=== PATIENT | female | born 1975 | race Caucasian/White ===

== ENCOUNTER → 2020-05-11 12:34 | Outpatient (BNVA) | payer OTHER, SELFPAY | PROVIDERS: Family Provider Family Medicine; Visit Provider Family Medicine | DX: Z11.59 Encounter for screening for other viral diseases (principal) | CPT/HCPCS: 87635 ==

== ENCOUNTER 2020-09-06 19:36 | Emergency (ER) | payer OTHER, SELFPAY ==
[2020-09-06 19:50] VITALS: BP 151/105; PULSE 112; RESP 14; TEMP 36.7; O2SAT 98; BMI 38.0
--- NOTE | 2020-09-06 22:15 | US_ITS ---
WS: [id number] RIGHT UPPER QUADRANT ULTRASOUND HISTORY: RUQ pain COMPARISON: None available. Liver: 14.2 cm in length. Normal size liver. No bile duct dilatation or mass. Gallbladder: Normally distended gallbladder. Stone with shadowing measures 2.1 cm within the gallblad clarisse. No pericholecystic fluid or gallbladder wall thickening. CBD: 0.4 cm Pancreas: Poorly visualized. The body is normal. Head and tail are obscured. Right kidney: 10.1 cm in length. Normal size and echogenicity. No hydronephrosis or mass. Aorta and IVC: Unremarkable abdominal aorta and IVC. No ascites. US/US gall bladder [id number] IMPRESSION: 1. Cholelithiasis without acute cholecystitis. 2. No bile duct dilatation.
--- NOTE | 2020-09-06 22:16 | W.ED.ABDPA2 ---
HPI - Abdominal Pain General: Chief Complaint: Abdominal Pain Stated Complaint: upper abd/back pain Time Seen by Provider: 09/06/20 22:11 History of Present Illness: HPI narrative: Patient is has right upper quadrant pain that radiates into her right shoulder and into her back after eating this is gone for the last 3 days. Does have a history of reflux she said this is deafly not reflux. Patient has felt nauseous has not vomited. Denies any bowel or bladder problems. When she is 5 years ago with her child she had gallbladder problems at that time but has been pretty much symptom-free since then until now. Denies fever chills. MD elicited complaint: abdominal pain Onset (ago): day(s) Pain Consistency: intermittent Location: RUQ Severity: moderate Quality: aching Radiation: back and other (Right shoulder) Exacerbating factors: eating Associated Symptoms: Reports nausea; Denies chills and fever(s) Review of Systems Const: Denies: fever(s), chills or body aches Eyes: Denies: change in vision or blurry vision ENMT: Denies: throat pain or nasal congestion Card: Denies: chest pain or dyspnea on exertion Resp: Denies: dyspnea, productive cough or non-productive cough GI: Reports: abdominal pain and nausea Musc: Denies: extremity pain Skin/Breast: Denies: rash Neuro: Denies: headache(s) Psych: Denies: anxiety or depression Warner/Lymph: Denies: easy bruising Physical Exam Const: COMMON NORMALS: no acute distress, average body habitus and patient oriented x3 HENMT: COMMON NORMALS: normocephalic HEAD & SCALP: normal to inspection and normocephalic FACE & SINUS: normal facial exam Eye: COMMON NORMALS: conjunctivae normal GENERAL EYE: appearance normal, both eyes and all related structures CONJUNCTIVA: Yes conjunctivae normal Neck/C-Spine: COMMON NORMALS: no JVD Chest: COMMONS NORMALS: normal inspection of the chest Resp: COMMON NORMALS: normal respiratory effort and clear to auscultation bilaterally AUSCULTATION: clear to auscultation bilaterally Cardio: COMMON NORMALS: no JVD, regular rate and regular rhythm RATE: regular rate RHYTHM: regular rhythm GI: COMMON NORMALS: Normal to inspection, nondistended, normoactive bowel sounds present PALPATION: Yes Tenderness to palpation present (GI) Details: RUQ Extremity: COMMON NORMALS: normal to inspection and full ROM Neuro: COMMON NORMALS: patient oriented x3 Course Vital Signs: Vital signs: Vital Signs Temperature 98.1 F 09/07/20 00:31 Pulse Rate 78 09/07/20 00:31 Respiratory Rate 17 09/07/20 00:31 Blood Pressure 148/87 09/07/20 00:31 Pulse Oximetry 98 09/07/20 00:31 MDM - Abdominal Pain MDM Narrative: Medical decision making narrative: Per ultrasound patient has a stone stuck up in the neck of her gallbladder. Labs look fine. Patient is going to follow-up with surgeon and see about getting gallbladder removal done. Lab Data: Labs: Lab Results 09/06/20 09/06/20 Range/Units 22:53 22:53 WBC 9.5 (4.0-10.0) 10^3/ uL RBC 4.33 (4.1-5.3) 10^6/u L Hgb 12.4 (11.5-15.3) g/dL Hct 38.5 (37.0-47.0) % MCV 88.9 (81-99) fL MCH 28.6 (28.0-34.0) pg MCHC 32.2 (30.0-36.0) g/dL RDW 13.3 (12.1-15.1) % Plt Count 384 (130-400) 10^3/c mm MPV 9.9 (7.4-10.4) fL Neut % (Auto) 70.6 % Lymph % (Auto) 20.3 % [place] % (Auto) 6.4 % Eos % (Auto) 1.9 % Baso % (Auto) 0.6 % Neut # (Auto) 6.71 (1.8-7.7) 10^3/u L Lymph # (Auto) 1.9 (0.8-4.8) 10^3/u L [place] # (Auto) 0.6 (0.2-0.9) 10^3/u L Eos # (Auto) 0.2 (0.0-0.8) 10^3/u L Baso # (Auto) 0.1 (0.0-0.1) 10^3/u L Nucleated RBC % (a uto) 0 % Nucleated RBCs # 0.0 /100WBC Sodium 137 (136-145) mmol/L Potassium 3.5 (3.5-5.1) mmol/L Chloride 99 (98-107) mmol/L Carbon Dioxide 28 (22-29) mmol/L Anion Gap 13.5 (5-19) BUN 14 (6-20) mg/dL Creatinine 1.1 H (0.5-0.9) mg/dL GFR Calculation 54.2 L (90-130) mL/min Glucose 134 H (65-115) mg/dL Calculated Osmolal ity 286 (285-295) mOsm/k g Calcium 9.3 (8.5-10.5) mg/dL Total Bilirubin 0.2 (0.15-1.2) mg/dL AST 13 (0-32) U/L ALT 13 (0-33) U/L Alkaline Phosphata se 60 (35-105) IU/L Total Protein 7.0 (6.6-8.7) g/dL Albumin 4.0 (3.5-5.2) g/dL Globulin 3.0 (1.3-4.6) g/dL Lipase 20 (13-60) U/L Discharge Plan Discharge Patient Disposition: Home Clinical Impression: Gallstone Qualifiers: Cholecystitis presence: without cholecystitis Biliary obstruction: without biliary obstruction Qualified Code(s): K80.20 - Calculus of gallbladder without cholecystitis without obstruction Condition: Stable Prescriptions: New hydrocodone-acetaminophen 5-325 mg tablet 1 tab PO TID PRN (Reason: pain) Qty: 14 RF: 0 Discharge Orders: Discharge ED (Routine); Ordered 09/07/20 Ordered By: Renaldo Dunne Referrals: Park Lowry DO [Primary Care Provider] - Discharge Diet: As Directed and Low Fat Discharge Activity: Resume usual activity Patient Instructions: Biliary Colic (ED) Activity Restrictions/Additional Instructions: Follow-up with medical provider as directed. Take medications as prescribed. Return to the ER or your medical provider if condition worsens. Please read and understand discharge instructions. If any questions ask please. He will be contacted by the hospital with appointment for general surgeon. Coding Level of Care Code ED Fork Repairer for Chg Fwd Exam Comprehensive
[2020-09-06 22:20] VITALS: BP 155/92; PULSE 87; RESP 17; O2SAT 98
[2020-09-06] MEDS: lidocaine 2% viscous 15 ML, aluminum-mag hydrox-simethicon 30 ML, sucralfate oral liq 1 GM PO (22:56)
[2020-09-06] MEDS: sodium chloride 0.9% 1,000 ML 999 ML IV (22:59)
[2020-09-06 23:33] LABS: Basophils # 0.1 10^3/uL (0.0-0.1); Basophils % 0.6 %; Eosinophils # 0.2 10^3/uL (0.0-0.8); Eosinophils % 1.9 %; Hematocrit 38.5 % (37.0-47.0); Hemoglobin 12.4 g/dL (11.5-15.3); Lymphocytes # 1.9 10^3/uL (0.8-4.8); Lymphocytes % 20.3 %; Mean Corpuscular HGB Conc 32.2 g/dL (30.0-36.0); Mean Corpuscular Hemoglobin 28.6 pg (28.0-34.0); Mean Corpuscular Volume 88.9 fL (81-99); Mean Platelet Volume 9.9 fL (7.4-10.4); Monocytes # 0.6 10^3/uL (0.2-0.9); Monocytes % 6.4 %; Neutrophils # 6.71 10^3/uL (1.8-7.7); Neutrophils % 70.6 %; Nucleated Red Blood Cells % 0 %; Platelet Count 384 10^3/cmm (130-400); Red Blood Count 4.33 10^6/uL (4.1-5.3); Red Cell Distribution Width 13.3 % (12.1-15.1); White Blood Count 9.5 10^3/uL (4.0-10.0)
[2020-09-06 23:40] LABS: Alanine Aminotransferase 13 U/L (0-33); Alkaline Phosphatase 60 IU/L (35-105); Anion Gap 13.5 (5-19); Aspartate Amino Transferase 13 U/L (0-32); Blood Urea Nitrogen 14 mg/dL (6-20); Calcium 9.3 mg/dL (8.5-10.5); Carbon Dioxide 28 mmol/L (22-29); Chloride 99 mmol/L (98-107); Glomerular Filtration Rate 54.2 mL/min (90-130); Glucose 134 mg/dL (65-115); Lipase 20 U/L (13-60); Osmolality Calculated 286 mOsm/kg (285-295); Potassium 3.5 mmol/L (3.5-5.1); Sodium 137 mmol/L (136-145); Total Bilirubin 0.2 mg/dL (0.15-1.2)
[2020-09-06] MEDS: HYDROcodone-acetaminophen 7.5-325 mg Tablet 1 TAB PO (23:45)
[2020-09-07 00:31] VITALS: BP 148/87; PULSE 78; RESP 17; TEMP 36.7; O2SAT 98
--- NOTE | 2020-09-07 09:14 | DCPLANNER ---
manager private had message to schedule a followup appointment for patient with [facility] General Surgery. manager private emailed patients information to both Yuliya and [place] at general surgery. Patients information will be printed and reviewed. Clinic will call patient with appointment information.
--- NOTE | 2020-09-08 11:52 | DCPLANNER ---
Patient has a follow up appointment scheduled for Saturday, September 12, [address] at 2:[address] Chou. Clinic will call patient with appointment information.
--- NOTE | 2020-10-20 14:51 | DCPLANNER ---
Patient had a follow up appointment scheduled for 09.12.[address] Chou at general surgery - appointment was cancelled due to weather.
== END 2020-09-07 00:31 | disposition home or self-care (01) ==
PROVIDERS: Emergency Provider Nurse Practitioner Family; PCP Family Medicine
DX: K80.20 Calculus of gallbladder without cholecystitis without obstruction (principal)
CPT/HCPCS: 12345; 76705; 80053; 83690; 85025; 96360; 99283; J7030

== ENCOUNTER → 2022-03-13 16:28 | Outpatient (BNVA) | payer OTHER, SELFPAY | PROVIDERS: Visit Provider Family Medicine | DX: E66.9 Obesity, unspecified (principal); R73.03 Prediabetes; Z71.3 Dietary counseling and surveillance; Z76.89 Persons encountering health services in other specified circumstances | CPT/HCPCS: 80053; 80061; 83036; 84439; 84443; 85025 ==

== ENCOUNTER 2022-03-18 16:47 | Emergency (ER) | payer OTHER, SELFPAY ==
[2022-03-18 17:13] VITALS: BP 129/79; PULSE 67; RESP 16; TEMP 36.6; O2SAT 99; BMI 36.0
--- NOTE | 2022-03-18 17:28 | XRR_ITS ---
PROCEDURE INFORMATION: Exam: XR Left Hand Exam date and time: 03/18/2022 5:35 PM Age: 47 years old Clinical indication: Injury or trauma; Other: Bite on left hand TECHNIQUE: Imaging protocol: Radiologic exam of the Left hand. Views: 3 or more views. COMPARISON: No relevant prior studies available. FINDINGS: Bones/joints: Normal. Soft tissues: Normal. XR/XR hand LT min 3V* [id number] IMPRESSION: No acute findings.
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
[2022-03-18] MEDS: mupirocin oint 22 gm 1 APPLIC TOPICAL (17:53)
[2022-03-18] MEDS: ciprofloxacin 500 mg Tablet PO (17:53)
[2022-03-18] MEDS: tetanus-dipt-pertussis 0.5 mL SDV IM (17:54)
[2022-03-18 20:47] LABS: HIV 1 & 2 Antibody Non-Reactive (Non-Reactiv); HIV 1 & 2 Antigen Non-Reactive (Non-Reactiv)
[2022-03-18 21:01] LABS: Hepatitis A Antibody IgM Non-Reactive (Nonreactive); Hepatitis B Core IgM Non-Reactive (Nonreactive); Hepatitis B Surface Antigen Non-Reactive (Nonreactive); Hepatitis C Virus Antibody Non-Reactive (Nonreactive)
== END 2022-03-18 19:48 | disposition home or self-care (01) ==
PROVIDERS: Emergency Provider Nurse Practitioner Family
DX: S61.452A Open bite of left hand, initial encounter (principal); Y04.1XXA Assault by human bite, initial encounter; Y92.239 Unspecified place in hospital as the place of occurrence of the external cause; Y99.0 Civilian activity done for income or pay; Z23 Encounter for immunization
CPT/HCPCS: 73130; 80074; 87806; 90471; 90715; 99284

== ENCOUNTER 2024-08-05 19:12 | Emergency (ER) | payer OTHER, SELFPAY ==
[2024-08-05 19:17] VITALS: BP 153/76; PULSE 85; TEMP 36.7; O2SAT 99; BMI 34.7
--- NOTE | 2024-08-05 19:29 | CTR_ITS ---
PROCEDURE INFORMATION: Exam: CT Head Without Contrast Exam date and time: 08/05/2024 7:43 PM Age: 49 years old Clinical indication: Pain; Headache; Additional info: JOYA TECHNIQUE: Imaging protocol: Computed tomography of the head without contrast. Radiation optimization: All CT scans at this facility use at least one of these dose optimization techniques: automated exposure control; mA and/or kV adjustment per patient size (includes targeted exams where dose is matched to clinical indication); or iterative reconstruction. Other technique: STROKE PROTOCOL was implemented. COMPARISON: No relevant prior studies available. RADIATION DOSE METRICS: Total DLP (mGy-cm): 1007.84 FINDINGS: Brain: No intracranial hemorrhage. No evidence of acute territorial infarct or cerebral edema. No mass effect or midline shift. Cerebral ventricles: No hydrocephalus. Paranasal sinuses: Mild mucosal thickening of the paranasal sinuses. No air-fluid levels. Mastoid air cells: The mastoid air cells are clear. Bones: The calvarium is intact. Soft tissues: Unremarkable. CT/CT head wo con* [id number] IMPRESSION: No acute intracranial findings. ASSESSMENT: ASPECTS ([place] Stroke Program Early CT Score) is 10.
[2024-08-05] MEDS: metoclopramide 5 mg/mL SDV 2 mL 10 MG IVP (19:47)
[2024-08-05] MEDS: ketorolac 30 mg/mL INJ 15 MG IVP (19:47)
[2024-08-05] MEDS: diphenhydrAMINE 50 mg/mL SDV 1mL IVP (19:47)
--- NOTE | 2024-08-05 19:57 | W.ED.HA ---
HPI - Headache General: Chief Complaint: Headache Stated Complaint: right eye head stabbing something n Left eye droop Time Seen by Provider: 08/05/24 19:25 Source: patient Mode of arrival: ambulatory Limitations: no limitations History of Present Illness: 49-year-old female states she has had a headache over the last 2 days. She states that yesterday she had had left eye pain and out today she has got right eye pain and mainly pain to her forehead. She denies any fever she denies any neck pain she rates her headache a 7 out of 10 it is gradually worse and was not sudden onset. Associated symptoms: Deny chest pain, fever(s), nausea, rash or vomiting Related Data Previous Rx's Medication Instructions Recorded semaglutide 0.25 mg or 0.5 mg (2 See Rx Instructions .Route 08/13/22 mg/1.5 mL) subcutaneous pen .COMPLEX #1.5 mL injector (Ozempic) fluticasone propionate 50 1 spray intranasal DAILY PRN nasal 05/06/23 mcg/actuation nasal congestion #16 mL spray,suspension (Allergy Relief (fluticasone)) escitalopram oxalate 10 mg tablet 10 mg PO DAILY #30 tabs 10/08/23 (Lexapro) Allergies Allergy/AdvReac Type Severity Reaction Status Date / Time Penicillins Allergy Mild rash Verified 08/05/24 19:21 Review of Systems Const: Denies: fever(s), chills, body aches or change in appetite Eyes: Denies: blurry vision ENMT: Denies: throat pain or dental pain Card: Denies: chest pain Resp: Denies: dyspnea GI: Denies: abdominal pain, nausea, vomiting or diarrhea : Denies: dysuria Musc: Denies: neck pain or back pain Skin/Breast: Denies: rash Neuro: Reports: headache(s) PFSH ED PFSH: Social History Smoking and tobacco/nicotine status: never used tobacco/nicotine Female Reproductive History: Spontaneous abortions: No Physical Exam Const: COMMON NORMALS: no acute distress, patient oriented x3 and healthy appearing HENMT: COMMON NORMALS: normocephalic and atraumatic HEAD & SCALP: normocephalic and atraumatic Eye: COMMON NORMALS: conjunctivae normal CONJUNCTIVA: Yes conjunctivae normal Neck/C-Spine: COMMON NORMALS: full ROM and supple Chest: COMMONS NORMALS: normal inspection of the chest Resp: COMMON NORMALS: normal respiratory effort Cardio: COMMON NORMALS: regular rate, regular rhythm and No murmurs present (Cardio) RATE: regular rate RHYTHM: regular rhythm Extremity: COMMON NORMALS: normal to inspection and full ROM Neuro: COMMON NORMALS: patient oriented x3, moves all extremities and no focal motor deficits Psych: COMMON NORMALS: mental status grossly normal, Normal thought process present and cooperative THOUGHT PROCESS: Normal thought process present Skin: COMMON NORMALS: no rashes or lesions noted and no wounds GENERAL SKIN EXAM: no rashes or lesions noted Course Vital Signs: Vital signs: Vital Signs Temperature 98.1 F 08/05/24 19:17 Pulse Rate 85 08/05/24 19:17 Blood Pressure 153/76 08/05/24 19:17 Pulse Oximetry 99 08/05/24 19:17 Oxygen Delivery Me thod Room Air 08/05/24 19:17 MDM - Headache Medical Decision Making Patient presents here with a headache she states she had some left eye pain 2 days ago and then today has been some right eye pain eye exam here is normal she has no facial droop no sign subarachnoid hemorrhage her headaches improved after meds no signs of meningitis she is to follow-up with her PCP and return if worsening. Medical Records I reviewed the patient's medical records. Lab Data Radiology Impressions Head CT 08/05/24 19:29 IMPRESSION: No acute intracranial findings. ASSESSMENT: ASPECTS ([place] Stroke Program Early CT Score) is 10. ADDENDUM: 08/05/242030 COMMENT: THIS REPORT CONTAINS FINDINGS THAT MAY BE CRITICAL TO PATIENT CARE. The exam findings were verbally communicated by me to CHANTAL ROCHE via telephone conference at 8:28 PM RUBBER GOODS CUTTER FINISHER on 08/05/2024. The findings were acknowledged and understood. All radiology interpretation(s) finalized by discharge Discharge Plan Discharge Patient Disposition: Home Clinical Impression: Headache Condition: Stable Prescriptions: No Action escitalopram oxalate [Lexapro] 10 mg tablet 10 mg PO DAILY Qty: 30 2RF Rx Instructions: Take 1/2 tab daily x 2 weeks, then increase to one tab daily. fluticasone propionate [Allergy Relief (fluticasone)] 50 mcg/actuation spray,suspension 1 spray intranasal DAILY PRN (Reason: nasal congestion) Qty: 16 0RF Rx Instructions: administer into each nostril Ozempic 0.25 mg or 0.5 mg(2 mg/1.5 mL) pen injector See Rx Instructions .ROUTE .COMPLEX Qty: 1.5 2RF Dose Instruction: inject 0.25mg FOR FOUR WEEKS THEN increase TO 0.5mg FOR FOUR WEEKS Rx Instructions: inject 0.25mg FOR FOUR WEEKS THEN increase TO 0.5mg FOR FOUR WEEKS Discharge Orders: Discharge ED (Routine); Ordered 08/05/24 Ordered By: Chantal Roche Referrals: José Antonio Wallace, [Primary Care Provider] - 4-7 days Discharge Diet: Advance as tolerated Discharge Activity: Resume usual activity Patient Instructions: Headache Coding Level of Care Code ED Blanchard Grinder Operator for Idris Nichols
[2024-08-05 21:21] VITALS: PULSE 72; O2SAT 97
[2024-08-05 21:26] VITALS: BP 149/72; PULSE 72; O2SAT 97
== END 2024-08-05 21:28 | disposition home or self-care (01) ==
PROVIDERS: Emergency Provider Emergency Medicine; PCP Family Medicine
DX: R51.9 Headache, unspecified (principal)
CPT/HCPCS: 70450; 96374; 96375; 99285; J1200; J1885; J2765